=== PATIENT | female | born 2000 | race Caucasian/White ===

== ENCOUNTER 2022-11-27 08:53 | Day surgery (SDC) | payer OTHER, SELFPAY ==
[2022-11-22 15:22] VITALS: BMI 21.9
[2022-11-27] VITALS (7 sets, daily range): BP systolic 101–113; BP diastolic 55–75; PULSE 78–97; RESP 16–20; TEMP 36.6–36.8; O2SAT 98–99; BMI 21.9
[2022-11-27 09:14] LABS: UPreg QC Valid YES; Urine Pregnancy NEGATIVE (NEGATIVE)
[2022-11-27] MEDS: Lactated Ringers 1,000 ML 100 ML IVCONT (09:31)
--- NOTE | 2022-11-27 10:00 | P.CONAN_ITS ---
Documented by User: Anne Cat NP 11/26/22 10:30 HPI - Anesthesia Eval Consult details Narrative: 22yo F for Bilateral Lateral Rectus Eye Muscle Recession,Bilateral Interior oblique Medically optimized [facility] Past Medical History Medical History Anxiety Back pain Renal calculi Thyroid nodule Surgical History Surgical History (Updated 11/27/22 @ 09:12 by Aleta Renteria) No pertinent past surgical history Social History Social History Patient Tobacco Use Status: Never used Tobacco Use of substances other than those prescribed or required for medical reasons: No Are you DNR?: No Advance Directives: No Advance Directives Information Provided: Yes Meds Allergies Allergy/AdvReac Type Severity Reaction Status Date / Time No Known Allergies Allergy Verified 11/27/22 09:12 Home Medications Medication Instructions Recorded Confirmed Last Taken Type escitalopram oxalate 10 mg tablet 10 mg PO DAILY 11/26/22 11/27/22 Unknown His tory fluticasone propionate 50 2 spray intranasal DAILY 11/26/22 11/27/22 Unknown History mcg/actuation nasal spray,suspension norgestimate-ethinyl estradiol 1 tab PO DAILY 11/26/22 11/27/22 Unknown History 0.18 mg/0.215mg/0.25mg-35 mcg(28)tablet (Tri-Estarylla) tazarotene 0.1 % topical cream 1 appl topical DAILY 11/26/22 11/27/22 Unknown History Exam Exam Date and Time: November 26, 2022 1029 Height,Weight and Vital Signs: Height 5 ft 2 in Weight 54.431 kg Assessment and Plan Assessment Anesthesia Assessment: Chart Reviewed Documented by User: Yasmin Alcantar DO 11/27/22 10:11 HPI - Anesthesia Eval Consult details Narrative: 22yo F for Bilateral Lateral Rectus Eye Muscle Recession,Bilateral Interior oblique Medically optimized. HCG negative. [facility] Past Medical History Medical History Anxiety Back pain Renal calculi Thyroid nodule Family History Family history of problems with anesthesia: No Surgical History Surgical History (Updated 11/27/22 @ 09:12 by Aleta Renteria) No pertinent past surgical history Social History Social History Patient Tobacco Use Status: Never used Tobacco Use of substances other than those prescribed or required for medical reasons: No Are you DNR?: No Advance Directives: No Advance Directives Information Provided: Yes Meds Allergies Allergy/AdvReac Type Severity Reaction Status Date / Time No Known Allergies Allergy Verified 11/27/22 09:12 Home Medications Medication Instructions Recorded Confirmed Last Taken Type escitalopram oxalate 10 mg tablet 10 mg PO DAILY 11/26/22 11/27/22 Unknown History fluticasone propionate 50 2 spray intranasal DAILY 11/26/22 11/27/22 Unknown History mcg/actuation nasal spray,suspension norgestimate-ethinyl estradiol 1 tab PO DAILY 11/26/22 11/27/22 Unknown History 0.18 mg/0.215mg/0.25mg-35 mcg(28)tablet (Tri-Estarylla) tazarotene 0.1 % topical cream 1 appl topical DAILY 11/26/22 11/27/22 Unknown History Exam Exam Date and Time: November 26, 2022 1000 Height,Weight and Vital Signs: Height 5 ft 2 in Weight 54.431 kg Vital Signs Temperature 98.0 F 11/27/22 09:19 Pulse Rate 78 11/27/22 09:19 Respiratory Rate 16 11/27/22 09:19 Blood Pressure 108/55 L 11/27/22 09:19 Pulse Oximetry 98 11/27/22 09:19 Oxygen Delivery Method Room Air 11/27/22 09:19 Temperature 98.0 F 11/27/22 09:19 Pulse Rate 78 11/27/22 09:19 Respiratory Rate 16 11/27/22 09:19 Blood Pressure 108/55 L 11/27/22 09:19 Pulse Oximetry 98 11/27/22 09:19 Oxygen Delivery Method Room Air 11/27/22 09:19 Airway Mallampati Class: I TM Dist: >3cm Neck ROM: Full Loose/Missing/Broken Teeth: No Heart: S1S2 Lungs: CTAB Assessment and Plan Assessment Anesthesia Assessment: Anesthesia Plan Discussed and Chart Reviewed Final Anesthetic Review Family History of Problems with Anesthesia: No NPO: Yes ASA Class: I Final Preanesthetic Review: No Changes in Pt Med Stat, Meds/Allgs Chart Reviewed, Consent Obtained/Reviewed and Anes Risks/Benef Reviewed Patient Risk: Low Procedure Risk: Low Anesthetic Plan Anesthetic Plan: GA and Agree w/ Assess. and Plan Disposition: Standard PACU
--- NOTE | 2022-11-27 12:13 | P.OPHTHAL_ITS ---
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 Procedures 1. Bilateral lateral rectus recessions of 6 mm 2. Anterior transposition of both inferior oblique muscles. Surgeon Dr. Stephens. Anesthesia general. Complications none. The patient was brought to the operating room placed under general anesthesia. The eyes were prepped and draped in the usual sterile ophthalmic fashion. A lid speculum was placed in the right eye and incisions made at bare sclera in the inferotemporal fornix. The inferior lateral rectus muscles were placed on large muscle hooks and the inferior oblique carefully id entified and grasped with 2 small tenotomy hooks. The muscle was transferred to the large hooks and grasped near its insertion with a curved mosquito. The muscle was then disinserted from the globe and reattached to a position 2 mm temporal and 2 mm posterior to the temporal insertion of the inferior rectus muscle. the lateral rectus muscle was then hooked and secured with a double- armed Vicryl suture. It was disinserted from the globe and reattached to position 6 mm behind its original insertion. Conjunctiva was closed with interrupted Vicryl sutures. An identical procedure was performed on the left eye. The patient was then awoken from general anesthesia and discharged to postoperative recovery in good condition.
== END 2022-11-27 11:59 | disposition home or self-care (01) ==
PROVIDERS: Nurse Practitioner; Visit Provider Ophthalmology
PROC: (CPT 67311; principal; 2022-11-27 10:30)
DX: H50.15 Alternating exotropia (principal); E04.9 Nontoxic goiter, unspecified; F41.1 Generalized anxiety disorder; Z79.899 Other long term (current) drug therapy
CPT/HCPCS: 67311; 67314; 67320; 81025; J1100; J2370; J2371; J2405; J3010